=== PATIENT | male | born 1950 | race Caucasian/White ===

== ENCOUNTER 2021-07-31 09:30 | Inpatient (IN) | payer MEDICARE, BC ==
[2021-07-27 09:23] LABS: BASOPHILS % (AUTO) 0.7 % (0-1); EOSINOPHILS # (AUTO) 0.3 X10'3 (0-0.9); EOSINOPHILS % (AUTO) 4.1 % (0-6); HEMATOCRIT 43.6 % (42.0-52.0); HEMOGLOBIN 14.8 g/dl (14.0-17.9); LYMPHOCYTES # (AUTO) 1.4 X10'3 (1.1-4.8); LYMPHOCYTES % (AUTO) 23.5 % (21-51); MEAN CORPUSCULAR HEMOGLOBIN 34.4 PG (27.0-31.0); MEAN CORPUSCULAR HGB CONC 33.9 g/dL (33.0-36.5); MEAN CORPUSCULAR VOLUME 101.3 FL (78-98); MEAN PLATELET VOLUME 8.4 FL (7.4-10.4); MONOCYTES # (AUTO) 0.6 X10'3 (0-0.9); MONOCYTES % (AUTO) 9.3 % (2-12); NEUTROPHILS # (AUTO) 3.8 X10'3 (1.8-7.7); NEUTROPHILS % (AUTO) 62.4 % (42-75); PLATELET COUNT 172 X10'3 (140-440); RED BLOOD COUNT 4.31 X10'6 (4.70-6.10); RED CELL DISTRIBUTION WIDTH 12.8 % (11.5-14.5); WHITE BLOOD COUNT 6.1 X10'3 (4.5-11.0)
[2021-07-27 09:26] LABS: ALBUMIN 3.9 G/DL (3.4-5.0); ANION GAP 12 (8-16); BLOOD UREA NITROGEN 31 MG/DL (7-18); BUN/CREATININE RATIO 26.5 (5.4-32.0); CHLORIDE 105 MMOL/L (99-107); CREATININE 1.17 MG/DL (0.60-1.10); GLUCOSE 110 MG/DL (70-104); POTASSIUM 4.4 MMOL/L (3.5-5.1); SODIUM 141 MMOL/L (135-145); TOTAL CARBON DIOXIDE 24.4 MMOL/L (24-32); eGFR 61 ML/MIN
[2021-07-27 09:31] LABS: APTT 26 SECONDS (22-32); CALCIUM 9.2 MG/DL (8.5-10.1)
[2021-07-31] VITALS (11 sets, daily range): BP systolic 101–142; BP diastolic 61–85
[~2021-07-31] VITALS: Ht 177.8 cm; Wt 131.8 kg
[~2021-07-31 09:30] MED LIST: LIDOcaine 2% 10ml TOPICAL JELLY (Urojet) ONE; albumin (human) 25% 100 ML IV solution IV ONE; aminocaproic acid 250 MG/1 ML inj. ONE; calcium chloride 100 MG/1 ML inj IV ONE; magnesium sulf 1 GM/2 ML ONE; methylPREDNISolone sod succ 1000mg vial ONE; sodium bicarbonate (8.4%) 1 mEq/ml syringe ONE
[2021-07-31] MEDS ORDERED: LORazepam 0.5 MG tablet PO PRN (09:55)
[2021-07-31] MEDS ORDERED: diphenhydrAMINE 25mg capsule PO PRN ×2 (09:55→15:25)
[2021-07-31] MEDS ORDERED: METO-395 PO (10:10)
[2021-07-31] MEDS ORDERED: LISI40TA13 PO (10:10)
[2021-07-31] MEDS ORDERED: GABA600T13 PO (10:10)
[2021-07-31] MEDS ORDERED: AMLO-708 PO (10:10)
[2021-07-31] MEDS ORDERED: FOLI1TAB27 PO (10:10)
[2021-07-31] MEDS ORDERED: ATOR20TA66 PO (10:10)
[2021-07-31] MEDS ORDERED: HYDR25TA5 PO (10:10)
[2021-07-31] MEDS ORDERED: PANT40TA54 PO (10:10)
[2021-07-31] MEDS ORDERED: DAPS25TA2 PO (10:10)
[2021-07-31] MEDS ORDERED: MELO-100 PO (10:10)
[2021-07-31] MEDS ORDERED: VITAMIN B12 PO (10:20)
[2021-07-31] MEDS ORDERED: FLAX SEED OIL PO (10:20)
[2021-07-31] MEDS ORDERED: OMEG1CAP2 PO (10:20)
[2021-07-31] MEDS ORDERED: CHOL200074 PO (10:20)
[2021-07-31] MEDS ORDERED: MULT-1085 PO (10:20)
[2021-07-31] MEDS ORDERED: ASPI-1053 PO (10:20)
[2021-07-31] MEDS ORDERED: POTA-205 PO (10:20)
[2021-07-31] MEDS: normal saline 1,000 ML IV SCH ×2 (11:46→19:55)
[2021-07-31] MEDS ORDERED: nitroGLYCERIN-Tridil 50MG/D5W 250 ML IV ONE (13:11)
[2021-07-31] MEDS ORDERED: verapamil 2.5 mg/ml inj IV ONE (13:11)
[2021-07-31] MEDS ORDERED: midazolam 1 mg/ML 2ml injection ONE (13:11)
[2021-07-31] MEDS ORDERED: iohexol 350 MG/1 ML 200ml bottle ONE (13:12)
[2021-07-31] MEDS ORDERED: heparin 1,000unit/ml 10ml vial 10 ML ONE (13:12)
[2021-07-31] MEDS ORDERED: fentaNYL/PF 50MCG/1 ML 2ML syringe ONE (13:12)
[2021-07-31] MEDS ORDERED: LIDOCAINE 1% w/preservative (10 MG/ML) inj. 10mL VIAL ONE ×2 (13:23→13:49)
[2021-07-31] MEDS ORDERED: HYDROcodone/acetaminophen 10/325mg tab PO PRN (14:40)
[2021-07-31] MEDS ORDERED: HYDROcodone/acetaminophen 5mg/325mg tablet PO PRN ×2 (14:40→15:25)
[2021-07-31] MEDS ORDERED: MESSAGE TO NURSING PO ONE ×4 (15:25)
[2021-07-31] MEDS ORDERED: ondansetron 4mg rapidly disintigrating tab PO PRN (15:25)
--- NOTE | 2021-07-31 19:07 | NUR ---
Called report to OBINNA Garduno PCU [id number]-all questions answered-stated understanding of pt status-will transfer when room ready
--- NOTE | 2021-07-31 19:10 | NUR ---
Patient in room PCU 3012. I have received report from OBINNA Garduno in Short Stay and had the opportunity to ask questions and assume patient care.
[2021-07-31 19:28] LABS: BASOPHILS % (AUTO) 0.7 % (0-1); EOSINOPHILS # (AUTO) 0.2 X10'3 (0-0.9); EOSINOPHILS % (AUTO) 4.1 % (0-6); HEMATOCRIT 40.1 % (42.0-52.0); HEMOGLOBIN 13.8 g/dl (14.0-17.9); LYMPHOCYTES # (AUTO) 1.3 X10'3 (1.1-4.8); LYMPHOCYTES % (AUTO) 22.1 % (21-51); MEAN CORPUSCULAR HEMOGLOBIN 35.3 PG (27.0-31.0); MEAN CORPUSCULAR HGB CONC 34.4 g/dL (33.0-36.5); MEAN CORPUSCULAR VOLUME 102.4 FL (78-98); MEAN PLATELET VOLUME 8.4 FL (7.4-10.4); MONOCYTES # (AUTO) 0.5 X10'3 (0-0.9); MONOCYTES % (AUTO) 7.9 % (2-12); NEUTROPHILS # (AUTO) 3.8 X10'3 (1.8-7.7); NEUTROPHILS % (AUTO) 65.2 % (42-75); PLATELET COUNT 159 X10'3 (140-440); RED BLOOD COUNT 3.92 X10'6 (4.70-6.10); RED CELL DISTRIBUTION WIDTH 12.7 % (11.5-14.5); WHITE BLOOD COUNT 5.9 X10'3 (4.5-11.0)
[2021-07-31 19:40] LABS: APTT 27 SECONDS (22-32)
[2021-07-31 19:43] LABS: HEMOGLOBIN A1C 5.9 % (4.5-6.2)
[2021-07-31 19:50] LABS: ALBUMIN 3.4 G/DL (3.4-5.0); ANION GAP 6 (8-16); BLOOD UREA NITROGEN 25 MG/DL (7-18); BUN/CREATININE RATIO 20.2 (5.4-32.0); CALCIUM 8.6 MG/DL (8.5-10.1); CHLORIDE 105 MMOL/L (99-107); CREATININE 1.24 MG/DL (0.60-1.10); GLUCOSE 173 MG/DL (70-104); MAGNESIUM 1.6 MG/DL (1.5-2.4); POTASSIUM 3.9 MMOL/L (3.5-5.1); SODIUM 136 MMOL/L (135-145); eGFR 57 ML/MIN
--- NOTE | 2021-07-31 20:30 | NUR ---
Patient arrived from Short Stay via wheelchair and transferred to hospital bed w/o problem. He is A&O x4, CROWE and is appropriate. He is very HH and has a cochlear implant.
[2021-07-31] MEDS: potassium Cl 20 mEq SR tablet PO SCH (21:32)
[2021-07-31] MEDS: furosemide 40mg/4ml inj IV SCH (21:32)
[2021-07-31] MEDS: gabapentin 300mg capsule PO SCH (21:34)
[2021-08-01 02:00] VITALS: BP 111/62
[2021-08-01 05:18] LABS: ABG BASE EXCESS 1.9 mmol/L (-2.0-2.0); ABG HCO3 25.7 mmol/L (22.0-26.0); ABG OXYGEN SATURATION 91.8 % (94-97); ABG PCO2 (T) 35.7 mmHg (35.0-48.0); ABG PO2 (T) 58.8 mmHg (75.0-100.0); ALLEN'S TEST POSITIVE; FCOHb 0.6 % (0.0-3.9); FMetHb 0.2 % (0.0-1.5); FO2Hb 91.1 % (94-97); PATIENT TEMPERATURE 35.8; TOTAL HEMOGLOBIN 14.4 G/dl (14.0-18.0)
[2021-08-01 06:00] VITALS: BP 114/79
--- NOTE | 2021-08-01 06:40 | NUR ---
Problems reprioritized. Patient report given, questions answered & plan of care reviewed with OBINNA Myles.
[2021-08-01 07:05] LABS: BASOPHILS % (AUTO) 0.4 % (0-1); EOSINOPHILS # (AUTO) 0.2 X10'3 (0-0.9); EOSINOPHILS % (AUTO) 3.6 % (0-6); HEMATOCRIT 40.4 % (42.0-52.0); HEMOGLOBIN 13.7 g/dl (14.0-17.9); LYMPHOCYTES % (AUTO) 16.3 % (21-51); MEAN CORPUSCULAR HEMOGLOBIN 34.4 PG (27.0-31.0); MEAN CORPUSCULAR HGB CONC 33.8 g/dL (33.0-36.5); MEAN CORPUSCULAR VOLUME 101.5 FL (78-98); MONOCYTES # (AUTO) 0.6 X10'3 (0-0.9); NEUTROPHILS # (AUTO) 4.3 X10'3 (1.8-7.7); NEUTROPHILS % (AUTO) 70.7 % (42-75); PLATELET COUNT 153 X10'3 (140-440); RED BLOOD COUNT 3.98 X10'6 (4.70-6.10); RED CELL DISTRIBUTION WIDTH 12.7 % (11.5-14.5); WHITE BLOOD COUNT 6.1 X10'3 (4.5-11.0)
[2021-08-01 07:35] LABS: ALBUMIN 3.4 G/DL (3.4-5.0); ANION GAP 9 (8-16); BLOOD UREA NITROGEN 25 MG/DL (7-18); CALCIUM 8.8 MG/DL (8.5-10.1); CHLORIDE 103 MMOL/L (99-107); CREATININE 1.25 MG/DL (0.60-1.10); GLUCOSE 120 MG/DL (70-104); MAGNESIUM 1.7 MG/DL (1.5-2.4); POTASSIUM 4.2 MMOL/L (3.5-5.1); SODIUM 139 MMOL/L (135-145); TOTAL CARBON DIOXIDE 26.8 MMOL/L (24-32); eGFR 57 ML/MIN
[2021-08-01] MEDS ORDERED: MELOXICAM 7.5MG PO SCH (08:00)
[2021-08-01] MEDS ORDERED: OMEGA-3/DHA/EPA/FISH OIL 1 EACH CAPSULE.DR PO SCH (08:00)
[2021-08-01] MEDS ORDERED: DAPSONE PO SCH (08:00)
[2021-08-01] MEDS ORDERED: amLODIPine 5mg tablet PO SCH (08:00)
[2021-08-01] MEDS ORDERED: HYDROchlorothiazide 25mg tablet PO SCH (08:00)
[2021-08-01] MEDS ORDERED: VITAMIN B12 1000 MCG PO SCH (08:00)
[2021-08-01] MEDS ORDERED: multivitamins, therapeutics tablet PO SCH (08:00)
[2021-08-01] MEDS ORDERED: cholecalciferol (vitamin D3) 1,000 unit (25mcg) tablet PO SCH (08:00)
[2021-08-01] MEDS: sod chloride 0.9% 10ml flush syringe IV SCH ×2 (08:00→20:03)
[2021-08-01] MEDS ORDERED: pantoprazole 40mg Tablet.DR PO SCH (08:00)
[2021-08-01] MEDS: furosemide 40mg/4ml inj IV SCH ×2 (09:11→20:02)
[2021-08-01] MEDS: metoprolol succinate 25mg (24-HOUR) SR. Tablet PO SCH (09:12)
[2021-08-01] MEDS: atorvastatin 20mg tablet PO SCH (09:12)
[2021-08-01] MEDS: aspirin 81mg tab.chew PO SCH (09:12)
[2021-08-01] MEDS: gabapentin 300mg capsule PO SCH ×2 (09:14→20:02)
[2021-08-01] MEDS: potassium Cl 20 mEq SR tablet PO SCH ×2 (09:16→17:33)
[2021-08-01] MEDS ORDERED: MESSAGE TO NURSING PO ONE ×3 (10:00→20:00)
[2021-08-01 11:00] VITALS: BP 107/77
[2021-08-01] MEDS ORDERED: dextrose 50%-water 50ml dispensing syringe IV PRN (11:40)
[2021-08-01 15:00] VITALS: BP 124/82
[2021-08-01 18:00] VITALS: BP 134/83
--- NOTE | 2021-08-01 18:48 | NUR ---
Problems reprioritized. Patient report given, questions answered & plan of care reviewed with OBINNA Pantoja.
[2021-08-01] MEDS: ringers solution, lacted 1,000 ML IV ONE (19:21)
[2021-08-01] MEDS ORDERED: sod chloride 0.9% 10ml flush syringe IV SCH (20:00)
[2021-08-01] MEDS: mupirocin 2% nasal ointment 1gm UD NS SCH (20:03)
[2021-08-01 22:00] VITALS: BP 102/73
[2021-08-02] VITALS (24 sets, daily range): BP systolic 88–136; BP diastolic 44–78
[2021-08-02] MEDS: ringers solution, lacted 1,000 ML IV ONE (00:19)
[2021-08-02] MEDS ORDERED: MESSAGE TO NURSING PO ONE ×3 (04:00→08:00)
[2021-08-02] MEDS ORDERED: MALTODEXTRIN/FRUCTOSE 0.68 KCAL/ML LIQUID 296ML BOTTLE PO ONE (05:00)
--- NOTE | 2021-08-02 05:10 | NUR ---
Pre-op consents have not been signed by the physician; obtaining consents beyond scope of practice for RN. RN will endorse to dayshift nurse to follow-up with physicians regarding informed consents for surgery, anesthesia, blood transfusions, and operative DNR clarification. MRSA was not obtained at admission on 07/31/21 and bactroban was administered on 08/01 at 20:03. Per pre-op checklist, MRSA swab needed to be completed prior to administration of bactroban. At 20:00 on 08/01 patient's took patient's belongings home, leaving only his cell phone and apparatuses for patient's cochlear implant. Preop medications in fridge, preop bath and shaving completed.
[2021-08-02] MEDS ORDERED: ceFAZolin inj. 3,000 MG in normal saline 100ml IV soln 100 ML IV ONE (05:30)
[2021-08-02] MEDS ORDERED: gabapentin 400mg capsule PO ONE (05:30)
--- NOTE | 2021-08-02 05:52 | NUR ---
RN called [facility] Room at extension [phone] - fourth time, to inform that patient's consents have not been signed. No answer. RN will endorse to dayshift nurse to follow-up with OR and physicians. Patient's and relatives at bedside.
[2021-08-02] MEDS ORDERED: insulin glargine (Lantus) pen - multi-dose SQ PRN ×2 (06:00→12:15)
[2021-08-02] MEDS ORDERED: famotidine 20mg tablet PO ONE (06:00)
[2021-08-02] MEDS ORDERED: LORazepam 2 mg/ml vial IV ONE (06:00)
[2021-08-02] MEDS: Insulin Reg/NS 100units/100mL 100 ML IV SCH ×2 (06:00→13:19)
--- NOTE | 2021-08-02 06:16 | NUR ---
Problems reprioritized. Patient report given, questions answered & plan of care reviewed with OBINNA Myles. Shameka stated she'll take care of the informed consents. Patient's family at bedside.
[2021-08-02 07:08] LABS: BASOPHILS % (AUTO) 0.4 % (0-1); EOSINOPHILS # (AUTO) 0.2 X10'3 (0-0.9); EOSINOPHILS % (AUTO) 3.3 % (0-6); HEMATOCRIT 42.9 % (42.0-52.0); HEMOGLOBIN 14.6 g/dl (14.0-17.9); LYMPHOCYTES # (AUTO) 1.4 X10'3 (1.1-4.8); LYMPHOCYTES % (AUTO) 19.5 % (21-51); MEAN CORPUSCULAR HEMOGLOBIN 34.3 PG (27.0-31.0); MEAN CORPUSCULAR VOLUME 100.8 FL (78-98); MEAN PLATELET VOLUME 9.2 FL (7.4-10.4); MONOCYTES # (AUTO) 0.8 X10'3 (0-0.9); NEUTROPHILS # (AUTO) 4.9 X10'3 (1.8-7.7); NEUTROPHILS % (AUTO) 65.8 % (42-75); PLATELET COUNT 163 X10'3 (140-440); RED BLOOD COUNT 4.25 X10'6 (4.70-6.10); RED CELL DISTRIBUTION WIDTH 12.7 % (11.5-14.5); WHITE BLOOD COUNT 7.4 X10'3 (4.5-11.0)
[2021-08-02 07:13] LABS: ALBUMIN 3.6 G/DL (3.4-5.0); ANION GAP 7 (8-16); BLOOD UREA NITROGEN 29 MG/DL (7-18); BUN/CREATININE RATIO 20.3 (5.4-32.0); CALCIUM 9.2 MG/DL (8.5-10.1); CHLORIDE 101 MMOL/L (99-107); CREATININE 1.43 MG/DL (0.60-1.10); GLUCOSE 141 MG/DL (70-104); MAGNESIUM 1.7 MG/DL (1.5-2.4); POTASSIUM 4.2 MMOL/L (3.5-5.1); SODIUM 135 MMOL/L (135-145); TOTAL CARBON DIOXIDE 26.6 MMOL/L (24-32); eGFR 49 ML/MIN
[2021-08-02] MEDS: metoprolol succinate 25mg (24-HOUR) SR. Tablet PO SCH (07:36)
[2021-08-02] MEDS: mupirocin 2% nasal ointment 1gm UD NS SCH (07:36)
[2021-08-02] MEDS ORDERED: SUFENTANIL CITRATE 50 MCG/ML 2ml ampule IV ONE (07:42)
[2021-08-02] MEDS ORDERED: midazolam 1 mg/ML 2ml injection ONE (07:43)
[2021-08-02] MEDS ORDERED: epiNEPHrine 1 mg/ml inj ONE ×2 (07:53→14:10)
[2021-08-02] MEDS ORDERED: ceFAZolin 1000mg inj ONE (07:53)
[2021-08-02] MEDS: gabapentin 300mg capsule PO SCH ×3 (08:00→20:35)
[2021-08-02] MEDS: aspirin 81mg tab.chew PO SCH (08:00)
[2021-08-02] MEDS ORDERED: MESSAGE TO PHARMACY IJ ONE (08:00)
[2021-08-02] MEDS: atorvastatin 20mg tablet PO SCH (08:00)
--- NOTE | 2021-08-02 08:54 | NUR ---
pt taken to OR. One wash basin with personal belongings to be taken down to ICU once room number obtained. Family has all other personal belongings.
[2021-08-02] MEDS ORDERED: isoflurane 100ml inhalation liquid IH ONE (09:05)
[2021-08-02] MEDS ORDERED: INSULIN R 100 UNIT in NS 100ML (1 UNIT/1 ML) BAG IV ONE (09:05)
[2021-08-02] MEDS ORDERED: DOPamine/D5W 400mg/250ml bag IV ONE (09:05)
[2021-08-02] MEDS ORDERED: NORepinephrine 8 MG in NS 250 ML BAG (32 mcg/ml) IV ONE (09:05)
[2021-08-02] MEDS ORDERED: nitroGLYCERIN in D5W 50mg/250ml (Tridil) infusion IV ONE (09:05)
[2021-08-02 09:27] LABS: ABG BASE EXCESS 1.1 mmol/L (-2.0-2.0); ABG HCO3 25.2 mmol/L (22.0-26.0); ABG PCO2 38.5 mmHg (35.0-48.0); ABG PO2 373.1 mmHg (75.0-100.0); CL (ABG) 100 mmol/L (98-110); FCOHb 0.6 % (0.0-3.9); FO2Hb 98.4 % (94-97); GLUCOSE (ABG) 125 mg/dl (70-105); IONIZED CA (ABG) 1.15 mmol/L (1.10-1.43); K (ABG) 3.9 mmol/L (3.5-5.0); TOTAL HEMOGLOBIN 14.4 G/dl (14.0-18.0)
[2021-08-02 10:47] LABS: ABG HCO3 VENOUS 26.9 mmol/L (21.0-28.0); ABG PCO2 VENOUS 48.6 mmHg (41.0-54.0); ABG PO2 VENOUS 50.4 mmHg (25.0-35.0); CL (ABG) 98 mmol/L (98-110); FCOHb VENOUS 0.9 %; FHHb VENOUS 17.7 %; FMetHb VENOUS 0.3 % (0.0 - 0.5); FO2Hb VENOUS 81.1 %; GLUCOSE (ABG) 137 mg/dl (70-105); IONIZED CA (ABG) 1.01 mmol/L (1.10-1.43); K (ABG) 5.4 mmol/L (3.5-5.0)
[2021-08-02 10:50] LABS: ABG BASE EXCESS 0.8 mmol/L (-2.0-2.0); ABG HCO3 27.5 mmol/L (22.0-26.0); ABG OXYGEN SATURATION 98.9 % (94-97); ABG PCO2 53.6 mmHg (35.0-48.0); ABG PO2 418.1 mmHg (75.0-100.0); CL (ABG) 98 mmol/L (98-110); FCOHb 0.1 % (0.0-3.9); FMetHb 0.3 % (0.0-1.5); FO2Hb 98.5 % (94-97); GLUCOSE (ABG) 138 mg/dl (70-105); IONIZED CA (ABG) 1.05 mmol/L (1.10-1.43); K (ABG) 4.9 mmol/L (3.5-5.0); TOTAL HEMOGLOBIN 11.4 G/dl (14.0-18.0)
[2021-08-02 11:12] LABS: ABG BASE EXCESS 7.2 mmol/L (-2.0-2.0); ABG HCO3 35.1 mmol/L (22.0-26.0); ABG OXYGEN SATURATION 98.8 % (94-97); ABG PO2 392.6 mmHg (75.0-100.0); CL (ABG) 95 mmol/L (98-110); FCOHb 0.1 % (0.0-3.9); FMetHb 0.3 % (0.0-1.5); FO2Hb 98.4 % (94-97); GLUCOSE (ABG) 146 mg/dl (70-105); IONIZED CA (ABG) 0.99 mmol/L (1.10-1.43); K (ABG) 4.4 mmol/L (3.5-5.0); TOTAL HEMOGLOBIN 11.3 G/dl (14.0-18.0)
[2021-08-02] MEDS ORDERED: ipratropium/albuterol 3ml nebule IH PRN (11:15)
[2021-08-02 11:58] LABS: ABG BASE EXCESS VENOUS -1.4 mmol/L (-2.0 - 2.0); ABG PCO2 VENOUS 43.3 mmHg (41.0-54.0); ABG PO2 VENOUS 48.2 mmHg (25.0-35.0); CL (ABG) 99 mmol/L (98-110); FCOHb VENOUS 0.9 %; FHHb VENOUS 20.1 %; FMetHb VENOUS 0.3 % (0.0 - 0.5); FO2Hb VENOUS 78.7 %; GLUCOSE (ABG) 170 mg/dl (70-105); IONIZED CA (ABG) 1.17 mmol/L (1.10-1.43); K (ABG) 4.3 mmol/L (3.5-5.0); TOTAL HEMOGLOBIN 11.4 G/dl (14.0-18.0)
[2021-08-02 12:00] LABS: ACTIVATED CLOTTING TIME 125 SEC (101-148)
[2021-08-02] MEDS ORDERED: ondansetron/PF 4mg/2ml inj IV PRN (12:15)
[2021-08-02] MEDS ORDERED: acetaminophen 325mg tablet PO PRN ×2 (12:15)
[2021-08-02] MEDS ORDERED: morphine 4 MG/ML inj SYRINge IV PRN (12:15)
[2021-08-02] MEDS ORDERED: mineral oil 133ml enema RC PRN (12:15)
[2021-08-02] MEDS ORDERED: sodium phosphate inj. 30 MMOL in dextrose 5%-water 250 ML IV PRN (12:15)
[2021-08-02] MEDS ORDERED: HYDROcodone/acetaminophen 10/325mg tab PO PRN (12:15)
[2021-08-02] MEDS ORDERED: Neutra Phos packet PO PRN (12:15)
[2021-08-02] MEDS ORDERED: bisacodyl 10mg suppository rectal RC PRN (12:15)
[2021-08-02] MEDS: sodium chloride 0.45% 1,000 ML IV SCH (12:15)
[2021-08-02] MEDS ORDERED: magnesium 4gm in 100ml NS 100 ML IV PRN (12:15)
[2021-08-02] MEDS ORDERED: sodium phosphate inj. 15 MMOL in dextrose 5%-water 250 ML IV PRN (12:15)
[2021-08-02] MEDS ORDERED: potassium Cl 20 mEq SR tablet PO PRN (12:15)
[2021-08-02] MEDS ORDERED: magnesium citrate 296ml oral solution PO PRN (12:15)
[2021-08-02] MEDS ORDERED: metoclopramide 5 mg/ml inj IV PRN (12:15)
[2021-08-02] MEDS ORDERED: magnesium hydroxide 30ml (MOM) UD suspension PO PRN (12:15)
[2021-08-02] MEDS ORDERED: niCARDipine-NS 40mg/200ml IVPB 200 ML IV PRN (12:15)
[2021-08-02] MEDS ORDERED: potassium CL 10mEq/100ml bag 100 ML IV PRN (12:15)
[2021-08-02] MEDS ORDERED: Insulin Reg/NS 100units/100mL 100 ML IV SCH (12:15)
[2021-08-02] MEDS ORDERED: dextrose 50%-water 50ml dispensing syringe IV PRN (12:15)
[2021-08-02] MEDS ORDERED: magnesium 2GM in 50ml NS 50 ML IV PRN (12:15)
--- NOTE | 2021-08-02 12:20 | NUR ---
Nutrition Consult: Pt s/p ascending aorta replacement today per EMR. Pt would benefit from high protein diet ed once appropriate post-op prior to discharge. Addendum: 08/02/21 at [address] Amended: Links added.
[2021-08-02 12:53] LABS: ABG BASE EXCESS -2.6 mmol/L (-2.0-2.0); ABG HCO3 22.7 mmol/L (22.0-26.0); ABG OXYGEN SATURATION 98.7 % (94-97); ABG PCO2 (T) 41.3 mmHg (35.0-48.0); ABG PO2 (T) 342.5 mmHg (75.0-100.0); FCOHb 0.3 % (0.0-3.9); FMetHb 0.3 % (0.0-1.5); FO2Hb 98.1 % (94-97); RESPIRATORY RATE 12 b/min; TIDAL VOLUME 650 mL; TOTAL HEMOGLOBIN 12.5 G/dl (14.0-18.0)
[2021-08-02 13:29] LABS: BASOPHILS % (AUTO) 0.1 % (0-1); EOSINOPHILS # (AUTO) 0.1 X10'3 (0-0.9); EOSINOPHILS % (AUTO) 0.6 % (0-6); HEMATOCRIT 36.4 % (42.0-52.0); HEMOGLOBIN 12.3 g/dl (14.0-17.9); LYMPHOCYTES # (AUTO) 1.5 X10'3 (1.1-4.8); LYMPHOCYTES % (AUTO) 9.9 % (21-51); MEAN CORPUSCULAR HEMOGLOBIN 34.1 PG (27.0-31.0); MEAN CORPUSCULAR HGB CONC 33.8 g/dL (33.0-36.5); MEAN PLATELET VOLUME 9.1 FL (7.4-10.4); MONOCYTES # (AUTO) 0.7 X10'3 (0-0.9); MONOCYTES % (AUTO) 4.9 % (2-12); NEUTROPHILS # (AUTO) 12.4 X10'3 (1.8-7.7); NEUTROPHILS % (AUTO) 84.5 % (42-75); PLATELET COUNT 99 X10'3 (140-440); RED BLOOD COUNT 3.61 X10'6 (4.70-6.10); RED CELL DISTRIBUTION WIDTH 12.8 % (11.5-14.5); WHITE BLOOD COUNT 14.7 X10'3 (4.5-11.0)
[2021-08-02 13:40] LABS: APTT 33 SECONDS (22-32)
[2021-08-02 13:42] LABS: ALANINE AMINOTRANSFERASE 32 U/L (12-78); ALBUMIN 2.9 G/DL (3.4-5.0); ALBUMIN/GLOBULIN RATIO 1.2 (1.1-1.5); ALKALINE PHOSPHATASE 39 IU/L (46-116); ANION GAP 7 (8-16); ASPARTATE AMINO TRANSFERASE 35 U/L (10-37); BILIRUBIN,TOTAL 0.8 MG/DL (0.1-1.0); BLOOD UREA NITROGEN 29 MG/DL (7-18); BUN/CREATININE RATIO 19.7 (5.4-32.0); CALCIUM 7.9 MG/DL (8.5-10.1); CHLORIDE 104 MMOL/L (99-107); CREATININE 1.47 MG/DL (0.60-1.10); GLUCOSE 164 MG/DL (70-104); PHOSPHORUS 4.4 MG/DL (2.3-4.5); SODIUM 137 MMOL/L (135-145); TOTAL CARBON DIOXIDE 26.4 MMOL/L (24-32); TOTAL PROTEIN 5.3 G/DL (6.4-8.2); eGFR 47 ML/MIN
[2021-08-02 13:44] LABS: POTASSIUM 4.1 MMOL/L (3.5-5.1)
[2021-08-02] MEDS: potassium Cl 20mEq/100mL bag 100 ML IV PRN ×4 (13:59→19:57)
[2021-08-02] MEDS: albumin (Human) 5% 250ml 250 ML IV PRN ×2 (14:08→15:12)
[2021-08-02] MEDS ORDERED: rocuronium 10mg/ml inj IV ONE (14:10)
[2021-08-02] MEDS ORDERED: LIDOcaine 2% (20mg/ml) 5ml vial ONE (14:10)
[2021-08-02] MEDS ORDERED: albumin (Human) 5% 250ml 250 ML IV ONE (14:10)
[2021-08-02] MEDS ORDERED: phenylephrine 10mg/ml inj. ONE (14:10)
[2021-08-02] MEDS ORDERED: acetaminophen 1,000mg/100ml IV 100 ML IV ONE (14:10)
[2021-08-02] MEDS ORDERED: etomidate 2mg/ml inj. ONE (14:10)
[2021-08-02 14:21] LABS: MAGNESIUM 2.2 MG/DL (1.5-2.4)
--- NOTE | 2021-08-02 15:54 | NUR ---
Received to room 2014, accompanied by MDs and surgical crew. Placed on ventilator, to rn cardiac, arterial line and PA line pressure monitored. Chest tubes to suction at 20 cm. Landin cath to gravity drainage. Dressings are dry and intact. See assessment record. All vasoactive drugs are infusing via central line.
[2021-08-02] MEDS ORDERED: NORepinephrine inj. 8 MG in dextrose 5%-water 242 ML IV SCH (15:55)
[2021-08-02] MEDS: ceFAZolin/D5W- 1GM premix 50 ML IV SCH (16:10)
[2021-08-02] MEDS ORDERED: NORepinephrine inj. 8 MG in normal saline 250ml IV soln 242 ML IV SCH (16:23)
[2021-08-02] MEDS: NORepinephrine 8mg/ 250ml NS 250 ML IV SCH (16:25)
[2021-08-02 17:48] LABS: BASOPHILS % (AUTO) 0 % (0-1); EOSINOPHILS % (AUTO) 0 % (0-6); HEMATOCRIT 38.7 % (42.0-52.0); HEMOGLOBIN 12.8 g/dl (14.0-17.9); LYMPHOCYTES # (AUTO) 1.1 X10'3 (1.1-4.8); LYMPHOCYTES % (AUTO) 7.1 % (21-51); MEAN CORPUSCULAR HEMOGLOBIN 33.6 PG (27.0-31.0); MEAN CORPUSCULAR HGB CONC 33.1 g/dL (33.0-36.5); MEAN CORPUSCULAR VOLUME 101.4 FL (78-98); MONOCYTES # (AUTO) 0.5 X10'3 (0-0.9); MONOCYTES % (AUTO) 3.2 % (2-12); NEUTROPHILS # (AUTO) 13.9 X10'3 (1.8-7.7); NEUTROPHILS % (AUTO) 89.7 % (42-75); PLATELET COUNT 100 X10'3 (140-440); RED BLOOD COUNT 3.82 X10'6 (4.70-6.10); RED CELL DISTRIBUTION WIDTH 12.8 % (11.5-14.5); WHITE BLOOD COUNT 15.5 X10'3 (4.5-11.0)
[2021-08-02 18:02] LABS: ALBUMIN 3.6 G/DL (3.4-5.0); ANION GAP 11 (8-16); BLOOD UREA NITROGEN 30 MG/DL (7-18); BUN/CREATININE RATIO 18.1 (5.4-32.0); CALCIUM 8.4 MG/DL (8.5-10.1); CHLORIDE 105 MMOL/L (99-107); CREATININE 1.66 MG/DL (0.60-1.10); GLUCOSE 145 MG/DL (70-104); MAGNESIUM 2.3 MG/DL (1.5-2.4); PHOSPHORUS 3.1 MG/DL (2.3-4.5); POTASSIUM 4.2 MMOL/L (3.5-5.1); SODIUM 140 MMOL/L (135-145); TOTAL CARBON DIOXIDE 24.5 MMOL/L (24-32); eGFR 41 ML/MIN
--- NOTE | 2021-08-02 18:13 | NUR ---
Problems reprioritized. Patient report given, questions answered & plan of care reviewed with Chay YEBOAH.
[2021-08-02] MEDS: vancomycin/NS 1 GM ADD-VANTAGE 250 ML IV SCH (20:16)
[2021-08-02 20:20] LABS: ABG HCO3 21.3 mmol/L (22.0-26.0); ABG OXYGEN SATURATION 96.2 % (94-97); ABG PCO2 (T) 35.1 mmHg (35.0-48.0); ABG PO2 (T) 92.3 mmHg (75.0-100.0); FCOHb 0.5 % (0.0-3.9); FMetHb 0.2 % (0.0-1.5); FO2Hb 95.5 % (94-97); PATIENT TEMPERATURE 36.5; PEEP 5 cm H2O; TOTAL HEMOGLOBIN 13.3 G/dl (14.0-18.0)
[2021-08-02] MEDS: atorvastatin 10mg tablet PO SCH (20:34)
[2021-08-02] MEDS: sennosides/docusate sodium tablet PO SCH (20:34)
[2021-08-02] MEDS: mupirocin 2% ointment 22GM NS SCH (21:04)
[2021-08-02] MEDS: morphine 2 MG/ML inj. syringe IV PRN (21:06)
[2021-08-03] VITALS (18 sets, daily range): BP systolic 88–133; BP diastolic 41–63
[2021-08-03] MEDS: ceFAZolin/D5W- 1GM premix 50 ML IV SCH ×4 (00:17→23:51)
[2021-08-03] MEDS: Insulin Reg/NS 100units/100mL 100 ML IV SCH (00:22)
[2021-08-03 02:49] LABS: BASOPHILS % (AUTO) 0.2 % (0-1); EOSINOPHILS % (AUTO) 0 % (0-6); HEMATOCRIT 36.1 % (42.0-52.0); HEMOGLOBIN 12.1 g/dl (14.0-17.9); LYMPHOCYTES # (AUTO) 0.7 X10'3 (1.1-4.8); LYMPHOCYTES % (AUTO) 3.6 % (21-51); MEAN CORPUSCULAR HEMOGLOBIN 34.2 PG (27.0-31.0); MEAN CORPUSCULAR HGB CONC 33.4 g/dL (33.0-36.5); MEAN CORPUSCULAR VOLUME 102.5 FL (78-98); MEAN PLATELET VOLUME 9.5 FL (7.4-10.4); MONOCYTES # (AUTO) 0.7 X10'3 (0-0.9); MONOCYTES % (AUTO) 3.7 % (2-12); NEUTROPHILS # (AUTO) 17.3 X10'3 (1.8-7.7); NEUTROPHILS % (AUTO) 92.5 % (42-75); PLATELET COUNT 103 X10'3 (140-440); RED BLOOD COUNT 3.52 X10'6 (4.70-6.10); RED CELL DISTRIBUTION WIDTH 12.6 % (11.5-14.5); WHITE BLOOD COUNT 18.7 X10'3 (4.5-11.0)
[2021-08-03] MEDS: morphine 2 MG/ML inj. syringe IV PRN (03:07)
[2021-08-03 03:38] LABS: ALANINE AMINOTRANSFERASE 31 U/L (12-78); ALBUMIN 3.3 G/DL (3.4-5.0); ALBUMIN/GLOBULIN RATIO 1.3 (1.1-1.5); ALKALINE PHOSPHATASE 37 IU/L (46-116); ANION GAP 8 (8-16); ASPARTATE AMINO TRANSFERASE 37 U/L (10-37); BILIRUBIN,TOTAL 0.6 MG/DL (0.1-1.0); BLOOD UREA NITROGEN 29 MG/DL (7-18); BUN/CREATININE RATIO 22.5 (5.4-32.0); CALCIUM 8.4 MG/DL (8.5-10.1); CHLORIDE 107 MMOL/L (99-107); CREATININE 1.29 MG/DL (0.60-1.10); GLUCOSE 121 MG/DL (70-104); MAGNESIUM 2.4 MG/DL (1.5-2.4); PHOSPHORUS 4.1 MG/DL (2.3-4.5); POTASSIUM 4.6 MMOL/L (3.5-5.1); SODIUM 141 MMOL/L (135-145); TOTAL PROTEIN 5.9 G/DL (6.4-8.2); eGFR 55 ML/MIN
[2021-08-03] MEDS ORDERED: albumin (Human) 5% 250ml 250 ML IV ONE (07:45)
[2021-08-03] MEDS: NORepinephrine 8mg/ 250ml NS 250 ML IV SCH ×2 (08:00→13:37)
[2021-08-03] MEDS: mupirocin 2% ointment 22GM NS SCH ×2 (09:44→21:00)
[2021-08-03] MEDS: vancomycin/NS 1 GM ADD-VANTAGE 250 ML IV SCH ×2 (09:44→21:00)
[2021-08-03] MEDS: metoprolol tartrate 12.5mg (1/2 tablet) PO SCH ×2 (09:44→20:00)
[2021-08-03] MEDS: sennosides/docusate sodium tablet PO SCH ×2 (09:45→21:01)
[2021-08-03] MEDS: gabapentin 300mg capsule PO SCH ×2 (09:45→13:50)
[2021-08-03] MEDS: aspirin 325mg tablet, delayed-release (Ecotrin) PO SCH (09:45)
[2021-08-03] MEDS: HYDROcodone/acetaminophen 10/325mg tab PO PRN (17:18)
[2021-08-03] MEDS: atorvastatin 10mg tablet PO SCH (21:01)
[2021-08-04] VITALS (12 sets, daily range): BP systolic 93–144; BP diastolic 45–74
[2021-08-04 03:44] LABS: BASOPHILS % (AUTO) 0.1 % (0-1); EOSINOPHILS % (AUTO) 0 % (0-6); HEMATOCRIT 30.1 % (42.0-52.0); LYMPHOCYTES # (AUTO) 0.8 X10'3 (1.1-4.8); LYMPHOCYTES % (AUTO) 4.9 % (21-51); MEAN CORPUSCULAR HEMOGLOBIN 34.1 PG (27.0-31.0); MEAN CORPUSCULAR HGB CONC 33.2 g/dL (33.0-36.5); MEAN CORPUSCULAR VOLUME 102.7 FL (78-98); MEAN PLATELET VOLUME 9.9 FL (7.4-10.4); MONOCYTES # (AUTO) 1.2 X10'3 (0-0.9); MONOCYTES % (AUTO) 7.1 % (2-12); NEUTROPHILS # (AUTO) 15.3 X10'3 (1.8-7.7); NEUTROPHILS % (AUTO) 87.9 % (42-75); PLATELET COUNT 77 X10'3 (140-440); RED BLOOD COUNT 2.93 X10'6 (4.70-6.10); WHITE BLOOD COUNT 17.3 X10'3 (4.5-11.0)
[2021-08-04 04:00] LABS: ANION GAP 5 (8-16); BLOOD UREA NITROGEN 31 MG/DL (7-18); BUN/CREATININE RATIO 27.7 (5.4-32.0); CALCIUM 7.7 MG/DL (8.5-10.1); CHLORIDE 107 MMOL/L (99-107); CREATININE 1.12 MG/DL (0.60-1.10); GLUCOSE 151 MG/DL (70-104); MAGNESIUM 2.3 MG/DL (1.5-2.4); PHOSPHORUS 4.1 MG/DL (2.3-4.5); POTASSIUM 4.7 MMOL/L (3.5-5.1); SODIUM 138 MMOL/L (135-145); TOTAL CARBON DIOXIDE 26.1 MMOL/L (24-32); eGFR 65 ML/MIN
[2021-08-04] MEDS: pantoprazole 40mg Tablet.DR PO SCH (07:30)
[2021-08-04] MEDS: mupirocin 2% ointment 22GM NS SCH (08:38)
[2021-08-04] MEDS: metoprolol tartrate 12.5mg (1/2 tablet) PO SCH ×2 (08:42→19:47)
[2021-08-04] MEDS: aspirin 325mg tablet, delayed-release (Ecotrin) PO SCH (08:42)
[2021-08-04] MEDS: sennosides/docusate sodium tablet PO SCH ×2 (08:42→19:46)
[2021-08-04] MEDS ORDERED: furosemide 40mg/4ml inj IV ONE (09:15)
--- NOTE | 2021-08-04 11:09 | NUR ---
Patient in room CICU 2013. I have received report from Timi YEBOAH and had the opportunity to ask questions and assume patient care.
[2021-08-04] MEDS: sodium chloride 0.45% 1,000 ML IV SCH (12:15)
[2021-08-04] MEDS: atorvastatin 10mg tablet PO SCH (20:12)
[2021-08-05] VITALS (7 sets, daily range): BP systolic 106–145; BP diastolic 59–76
[2021-08-05] MEDS: Insulin Reg/NS 100units/100mL 100 ML IV SCH (00:40)
[2021-08-05 06:45] LABS: ALBUMIN 3.2 G/DL (3.4-5.0); ANION GAP 7 (8-16); BLOOD UREA NITROGEN 34 MG/DL (7-18); BUN/CREATININE RATIO 32.7 (5.4-32.0); CALCIUM 8.4 MG/DL (8.5-10.1); CHLORIDE 104 MMOL/L (99-107); CREATININE 1.04 MG/DL (0.60-1.10); GLUCOSE 132 MG/DL (70-104); MAGNESIUM 2.2 MG/DL (1.5-2.4); PHOSPHORUS 3.4 MG/DL (2.3-4.5); POTASSIUM 4.3 MMOL/L (3.5-5.1); SODIUM 139 MMOL/L (135-145); TOTAL CARBON DIOXIDE 27.9 MMOL/L (24-32); eGFR 70 ML/MIN
[2021-08-05 06:46] LABS: BASOPHILS % (AUTO) 0.1 % (0-1); EOSINOPHILS % (AUTO) 0 % (0-6); HEMOGLOBIN 11.3 g/dl (14.0-17.9); LYMPHOCYTES % (AUTO) 8.1 % (21-51); MEAN CORPUSCULAR HEMOGLOBIN 35.1 PG (27.0-31.0); MEAN CORPUSCULAR HGB CONC 34.2 g/dL (33.0-36.5); MEAN CORPUSCULAR VOLUME 102.7 FL (78-98); MEAN PLATELET VOLUME 9.2 FL (7.4-10.4); MONOCYTES # (AUTO) 1.2 X10'3 (0-0.9); MONOCYTES % (AUTO) 9.7 % (2-12); NEUTROPHILS # (AUTO) 9.8 X10'3 (1.8-7.7); NEUTROPHILS % (AUTO) 82.1 % (42-75); PLATELET COUNT 99 X10'3 (140-440); RED BLOOD COUNT 3.22 X10'6 (4.70-6.10); RED CELL DISTRIBUTION WIDTH 12.5 % (11.5-14.5); WHITE BLOOD COUNT 11.9 X10'3 (4.5-11.0)
--- NOTE | 2021-08-05 07:04 | NUR ---
Patient in room PCU 3019. I have received report from Felicitas YEBOAH and had the opportunity to ask questions and assume patient care.
[2021-08-05] MEDS: sennosides/docusate sodium tablet PO SCH ×2 (08:39→20:00)
[2021-08-05] MEDS ORDERED: furosemide 40mg/4ml inj IV ONE (08:40)
[2021-08-05] MEDS: pantoprazole 40mg Tablet.DR PO SCH (08:40)
[2021-08-05] MEDS: aspirin 325mg tablet, delayed-release (Ecotrin) PO SCH (08:46)
[2021-08-05] MEDS: metoprolol tartrate 12.5mg (1/2 tablet) PO SCH ×2 (09:09→20:00)
[2021-08-05] MEDS ORDERED: HYDR-3972 PO (09:18)
--- NOTE | 2021-08-05 10:54 | NUR ---
Initial: Pt s/p supracoronary ascending aorta replacement this admit per EMR. Currently on NCS diet w/ 100% intake of meals close to meeting est nutrient needs. LBM 08/04 receiving routine Senna. Provided pt w/ written and verbal high protein diet ed w/ RD contact into. Will continue to monitor. Recs; 1. Continue NCS diet as tolerated 2. Double protein WB 3. Bowel care per rx 4. Weekly wts Addendum: 08/05/21 at [address] Amended: Links added.
[2021-08-05 16:01] LABS: BASOPHILS % (AUTO) 0.3 % (0-1); EOSINOPHILS % (AUTO) 0 % (0-6); HEMATOCRIT 35.4 % (42.0-52.0); HEMOGLOBIN 12.1 g/dl (14.0-17.9); LYMPHOCYTES # (AUTO) 0.9 X10'3 (1.1-4.8); LYMPHOCYTES % (AUTO) 7.3 % (21-51); MEAN CORPUSCULAR HEMOGLOBIN 35.1 PG (27.0-31.0); MEAN CORPUSCULAR HGB CONC 34.3 g/dL (33.0-36.5); MEAN CORPUSCULAR VOLUME 102.3 FL (78-98); MEAN PLATELET VOLUME 9.5 FL (7.4-10.4); MONOCYTES # (AUTO) 1.5 X10'3 (0-0.9); MONOCYTES % (AUTO) 11.6 % (2-12); NEUTROPHILS # (AUTO) 10.3 X10'3 (1.8-7.7); NEUTROPHILS % (AUTO) 80.8 % (42-75); PLATELET COUNT 120 X10'3 (140-440); RED BLOOD COUNT 3.46 X10'6 (4.70-6.10); RED CELL DISTRIBUTION WIDTH 12.8 % (11.5-14.5); WHITE BLOOD COUNT 12.8 X10'3 (4.5-11.0)
[2021-08-05 16:03] LABS: ALBUMIN 3.6 G/DL (3.4-5.0); ANION GAP 9 (8-16); BLOOD UREA NITROGEN 36 MG/DL (7-18); BUN/CREATININE RATIO 30.5 (5.4-32.0); CHLORIDE 102 MMOL/L (99-107); CREATININE 1.18 MG/DL (0.60-1.10); GLUCOSE 145 MG/DL (70-104); MAGNESIUM 2.1 MG/DL (1.5-2.4); POTASSIUM 4.1 MMOL/L (3.5-5.1); SODIUM 138 MMOL/L (135-145); TOTAL CARBON DIOXIDE 26.8 MMOL/L (24-32); eGFR 61 ML/MIN
[2021-08-05] MEDS: atorvastatin 10mg tablet PO SCH (21:00)
[2021-08-06 02:00] VITALS: BP 111/58
[2021-08-06 06:14] LABS: BASOPHILS % (AUTO) 0.3 % (0-1); EOSINOPHILS % (AUTO) 0.3 % (0-6); HEMATOCRIT 34.2 % (42.0-52.0); HEMOGLOBIN 11.6 g/dl (14.0-17.9); LYMPHOCYTES # (AUTO) 1.2 X10'3 (1.1-4.8); LYMPHOCYTES % (AUTO) 12.2 % (21-51); MEAN CORPUSCULAR HEMOGLOBIN 34.4 PG (27.0-31.0); MEAN CORPUSCULAR HGB CONC 33.9 g/dL (33.0-36.5); MEAN CORPUSCULAR VOLUME 101.6 FL (78-98); MEAN PLATELET VOLUME 9.4 FL (7.4-10.4); MONOCYTES # (AUTO) 1.3 X10'3 (0-0.9); MONOCYTES % (AUTO) 12.9 % (2-12); NEUTROPHILS # (AUTO) 7.3 X10'3 (1.8-7.7); NEUTROPHILS % (AUTO) 74.3 % (42-75); PLATELET COUNT 126 X10'3 (140-440); RED BLOOD COUNT 3.36 X10'6 (4.70-6.10); RED CELL DISTRIBUTION WIDTH 12.9 % (11.5-14.5); WHITE BLOOD COUNT 9.8 X10'3 (4.5-11.0)
[2021-08-06 06:22] LABS: ACT @ 1.70 U 295 SEC (193-297); ACT @ 2.84 U 423 SEC (260-420); BASELINE ACT 157 SEC (101-148)
[2021-08-06 06:36] LABS: ALBUMIN 3.3 G/DL (3.4-5.0); ANION GAP 10 (8-16); BLOOD UREA NITROGEN 33 MG/DL (7-18); CALCIUM 8.8 MG/DL (8.5-10.1); CHLORIDE 102 MMOL/L (99-107); CREATININE 1.03 MG/DL (0.60-1.10); GLUCOSE 123 MG/DL (70-104); MAGNESIUM 2.1 MG/DL (1.5-2.4); PHOSPHORUS 3.6 MG/DL (2.3-4.5); SODIUM 138 MMOL/L (135-145); TOTAL CARBON DIOXIDE 25.9 MMOL/L (24-32); eGFR 71 ML/MIN
[2021-08-06 07:00] VITALS: BP 110/70
[2021-08-06] MEDS: sennosides/docusate sodium tablet PO SCH (08:09)
[2021-08-06] MEDS: aspirin 325mg tablet, delayed-release (Ecotrin) PO SCH (08:09)
[2021-08-06] MEDS: metoprolol tartrate 12.5mg (1/2 tablet) PO SCH (08:09)
[2021-08-06] MEDS: pantoprazole 40mg Tablet.DR PO SCH (08:10)
[2021-08-06] MEDS: Insulin Reg/NS 100units/100mL 100 ML IV SCH (10:00)
[2021-08-06] MEDS: HYDROcodone/acetaminophen 10/325mg tab PO PRN (10:26)
[2021-08-06 11:00] VITALS: BP 123/75
[2021-08-06 12:10] LABS: ABG PCO2 68.7 mmHg (35.0-48.0)
[2021-08-06] MEDS: sodium chloride 0.45% 1,000 ML IV SCH (12:15)
--- NOTE | 2021-08-06 14:11 | NUR ---
Patient was DC to home and was picked up by family. PIV was removed with cannula intact. RX were sent to pharmacy. DC instructions, warning s/s and sternal precautions were reviewed with patient, , and daughter and they all verbalized understanding. Patient was alert, oriented, and appropriate at time of DC. Patient wheeled out to car.
--- NOTE | 2021-08-08 15:45 | NUR ---
Case Management DC follow up:Spoke with patient's via telephone. S/P:Denies chest pain,SOB,nausea, signs and or symptoms of infection ; no drainage ,and or, redness at incision site.Verbalizes compliance with aftercare. Verbalizes understanding of signs and symptoms that warrant 911/ER visit for further evaluation.Verbalizes understanding of new RX:, why prescribed;continues/resumes current Rx as ordered, and has stopped taking amlodipine as ordered.Verbalizes staff were great until return to PCU from unit.Verbalizes upon arrival to room 3008, they had to go to nurses station and ask for water, and pillows; there was just a sheet on the bed, had to ask for a blanket.Verbalized Nurse did eventually come to the room, introduced herself and turned up the thermostat.Later that night they moved patient to room 3019 via bed.Verbalized the transfer was rough and then They left him flat in the bed, which was uncomfortable.
== END 2021-08-06 14:00 | disposition home or self-care (01) | DRG 216 ==
LOC: SSTAY O 09:30 → PCU 3S 17:30 → CICU 2S 08-02 09:07 → PCU 3S 08-04 12:42
PROVIDERS: ADMIT Internal Medicine Interventional Cardiology; ATTEND Internal Medicine Interventional Cardiology
PROC: 4A023N7 Measurement of Cardiac Sampling and Pressure, Left Heart, Percutaneous Approach (ICD-10-PCS; 2021-07-31)
PROC: B2111ZZ Fluoroscopy of Multiple Coronary Arteries using Low Osmolar Contrast (ICD-10-PCS; 2021-07-31)
PROC: B41F1ZZ Fluoroscopy of Right Lower Extremity Arteries using Low Osmolar Contrast (ICD-10-PCS; 2021-07-31)
PROC: 5A1221Z Performance of Cardiac Output, Continuous (ICD-10-PCS; 2021-08-02)
PROC: B24BZZ4 Ultrasonography of Heart with Aorta, Transesophageal (ICD-10-PCS; 2021-08-02)
PROC: 02RX0JZ Replacement of Thoracic Aorta, Ascending/Arch with Synthetic Substitute, Open Approach (ICD-10-PCS; principal; 2021-08-02 09:05)
DX: I71.2 Thoracic aortic aneurysm, without rupture (principal); N17.0 Acute kidney failure with tubular necrosis; D33.3 Benign neoplasm of cranial nerves; Z20.822 Contact with and (suspected) exposure to COVID-19; H90.42 Sensorineural hearing loss, unilateral, left ear, with unrestricted hearing on the contralateral side; E78.5 Hyperlipidemia, unspecified; I25.10 Atherosclerotic heart disease of native coronary artery without angina pectoris; I10 Essential (primary) hypertension; I45.4 Nonspecific intraventricular block; M25.473 Effusion, unspecified ankle; Z79.899 Other long term (current) drug therapy
CPT/HCPCS: 36415; 36600; 71045; 71046; 71250; 80048; 80053; 82330; 82435; 82803; 82947; 82948; 83036; 83735; 83880; 84100; 84132; 84295; 85018; 85025; 85347; 85384; 85610; 85730; 86885; 86900; 86901; 86920; 88305; 93005; 93312; 93325; 93458; 93880; 93970; 94002; 94010; 94760; 97116; 97161; 97164; 97530; 99152; 99153; A4618; A4620; A5120; A6258; A6449; A7048; C1751; C1760; C1769; C1894; G0378; J0131; J0171; J0690; J1265; J1644; J1815; J1940; J2060; J2150; J2250; J2270; J2370; J2930; J3010; J3370; J3475; J3480; J3490; J7030; J7040; J7050; J7060; J7120; L8670; P9045; P9047; Q0163; Q9967

== ENCOUNTER 2023-07-22 07:20 | Outpatient (CLI) | payer MEDICARE, BC ==
[~2023-07-22 07:20] MED LIST changes: +ASPI-1053 PO; +ATOR20TA66 PO; +CHOL200074 PO; +DAPS25TA2 PO; +FLAX SEED OIL PO; +FOLI1TAB27 PO; +GABA600T13 PO; +HYDR-3972 PO; +HYDR25TA5 PO; -LIDOcaine 2% 10ml TOPICAL JELLY (Urojet) ONE; +MELO-100 PO; +METO-395 PO; +MULT-1085 PO; +OMEG1CAP2 PO; +PANT40TA54 PO; +POTA-205 PO; +VITAMIN B12 PO; -albumin (human) 25% 100 ML IV solution IV ONE; -aminocaproic acid 250 MG/1 ML inj. ONE; -calcium chloride 100 MG/1 ML inj IV ONE; -magnesium sulf 1 GM/2 ML ONE; -methylPREDNISolone sod succ 1000mg vial ONE; -sodium bicarbonate (8.4%) 1 mEq/ml syringe ONE
[2023-07-22] MEDS ORDERED: iohexol 300mg/ml 100ml inj. ONE (08:00)
[2023-07-22 08:19] LABS: ALBUMIN 3.6 G/DL (3.4-5.0); ANION GAP 9 (8-16); BLOOD UREA NITROGEN 27 MG/DL (7-18); BUN/CREATININE RATIO 18.5 (10.0-20.0); CALCIUM 9.2 MG/DL (8.5-10.1); CHLORIDE 103 MMOL/L (99-107); CREATININE 1.46 MG/DL (0.60-1.10); GLUCOSE 114 MG/DL (70-104); POTASSIUM 4.5 MMOL/L (3.5-5.1); SODIUM 139 MMOL/L (135-145); eGFR 47 ML/MIN
== END 2023-07-22 23:59 | disposition home or self-care (01) ==
LOC: RAD 07:20
PROVIDERS: ATTEND Internal Medicine Interventional Cardiology
DX: J98.11 Atelectasis (principal); R91.8 Other nonspecific abnormal finding of lung field; I10 Essential (primary) hypertension; E78.5 Hyperlipidemia, unspecified; K76.0 Fatty (change of) liver, not elsewhere classified; I71.20 Thoracic aortic aneurysm, without rupture, unspecified
CPT/HCPCS: 36415; 71275; 80048; Q9967

== ENCOUNTER 2023-08-07 08:57 | Outpatient (CLI) | payer MEDICARE, BC ==
[~2023-08-07 08:57] MED LIST changes: +iohexol 300mg/ml 100ml inj. ONE
[2023-08-07] MEDS ORDERED: iohexol 300mg/ml 100ml inj. ONE (09:20)
== END 2023-08-07 23:59 | disposition home or self-care (01) ==
LOC: RAD 08:57
DX: K57.30 Diverticulosis of large intestine without perforation or abscess without bleeding (principal); R14.0 Abdominal distension (gaseous); R19.8 Other specified symptoms and signs involving the digestive system and abdomen; J98.11 Atelectasis; N28.1 Cyst of kidney, acquired; K43.9 Ventral hernia without obstruction or gangrene; N21.0 Calculus in bladder; N40.0 Benign prostatic hyperplasia without lower urinary tract symptoms
CPT/HCPCS: 74177; J3490; Q9967